=== PATIENT | female | born 1995 | race Caucasian/White ===

== ENCOUNTER → 2016-11-24 | Outpatient (CLI) | payer SELFPAY ==
[2016-11-24 09:50] LABS: BASOPHILS % (AUTO) 0.8 % (0.2-1.0); EOSINOPHILS # (AUTO) 0.1 x10^3/uL (0.0-0.2); EOSINOPHILS % (AUTO) 3.4 % (0.9-2.9); HEMATOCRIT 44.2 % (36.0-47.0); HEMOGLOBIN 15.4 g/dL (12.0-16.0); LYMPHOCYTES # (AUTO) 1.5 X10^3/uL (1.3-2.9); LYMPHOCYTES % (AUTO) 34.1 % (21.0-51.0); MEAN CORPUSCULAR HEMOGLOBIN 30.2 pg (27.0-34.0); MEAN CORPUSCULAR HGB CONC 34.9 g/dL (33.0-35.0); MEAN CORPUSCULAR VOLUME 86.5 fL (80.0-100.0); MONOCYTES # (AUTO) 0.4 x10^3/uL (0.3-0.8); MONOCYTES % (AUTO) 9.1 % (0.0-13.0); NEUTROPHILS # (AUTO) 2.3 x10^3/uL (2.2-4.8); NEUTROPHILS % (AUTO) 52.6 % (42.0-75.0); PLATELET COUNT 204 X10^3/uL (150.0-450.0); RED BLOOD COUNT 5.12 X10^6/uL (3.5-5.4); RETICULOCYTE % 0.65 % (0.8-2.2); WHITE BLOOD COUNT 4.3 X10^3/uL (3.6-10.0)
[2016-11-24 10:13] LABS: ALANINE AMINOTRANSFERASE 20 Units/L (12-78); ALBUMIN 4.7 g/dL (3.4-5.0); ALKALINE PHOSPHATASE 40 Units/L (46-116); ASPARTATE AMINO TRANSFERASE 18 Units/L (15-37); BLOOD UREA NITROGEN 13 mg/dL (7-18); CALCIUM 9.5 mg/dL (8.5-10.1); CARBON DIOXIDE 30.8 mmol/L (21-32); CHLORIDE 104 mmol/L (98-107); CREATININE 0.74 mg/dL (0.55-1.02); FREE T4 (FREE THYROXINE) 1.27 ng/dL (0.76-1.46); GLUCOSE 96 mg/dL (65-99); SODIUM 140 mmol/L (136-145); TOTAL PROTEIN 8.4 g/dL (6.4-8.2); TSH (3RD GENERATION) 1.137 uIU/mL (0.358-3.74); eGFR BLACK RACES > 60 (>60); eGFR NON BLACK RACES > 60 (>60)
[2016-11-24 10:44] LABS: TRANSFERRIN 193 mg/dL (202-364)
== END ==
LOC: LAB 09:23
PROVIDERS: ATTEND Nurse Practitioner Family
DX: R63.4 Abnormal weight loss (principal); D64.89 Other specified anemias; R42 Dizziness and giddiness
CPT/HCPCS: 36415; 80053; 82607; 82728; 82746; 84439; 84443; 84466; 85025; 85045

== ENCOUNTER 2016-12-05 16:08 | Emergency (ER) | payer SELFPAY ==
[2016-12-05 16:12] VITALS: BMI 17.4
[2016-12-05] MEDS ORDERED: NS 1000 ML 1,000 ML ONE ×2 (16:16→17:26)
[2016-12-05] MEDS ORDERED: NS 1000 ML 1,000 ML IV ONE ×2 (16:25→17:39)
[2016-12-05] MEDS ORDERED: ZOFRAN INJ 4 MG VIAL ONE (16:34)
[2016-12-05] MEDS ORDERED: ZOFRAN INJ 4 MG VIAL IVP ONE (16:35)
[2016-12-05 16:36] LABS: BASOPHILS # (AUTO) 0.1 X10^3/uL (0.0-0.1); BASOPHILS % (AUTO) 0.4 % (0.2-1.0); EOSINOPHILS % (AUTO) 0.2 % (0.9-2.9); HEMATOCRIT 42.4 % (36.0-47.0); HEMOGLOBIN 14.4 g/dL (12.0-16.0); LYMPHOCYTES # (AUTO) 0.7 X10^3/uL (1.3-2.9); LYMPHOCYTES % (AUTO) 4.6 % (21.0-51.0); MEAN CORPUSCULAR HEMOGLOBIN 29.7 pg (27.0-34.0); MEAN CORPUSCULAR VOLUME 87.3 fL (80.0-100.0); MEAN PLATELET VOLUME 10.1 fL (7.4-11.0); MONOCYTES # (AUTO) 0.4 x10^3/uL (0.3-0.8); NEUTROPHILS # (AUTO) 13.4 x10^3/uL (2.2-4.8); NEUTROPHILS % (AUTO) 91.8 % (42.0-75.0); PLATELET COUNT 221 X10^3/uL (150.0-450.0); RED BLOOD COUNT 4.86 X10^6/uL (3.5-5.4); RED CELL DISTRIBUTION WIDTH 13.2 % (11.6-16.5); WHITE BLOOD COUNT 14.6 X10^3/uL (3.6-10.0)
[2016-12-05 16:49] LABS: ALANINE AMINOTRANSFERASE 22 Units/L (12-78); ALBUMIN 4.5 g/dL (3.4-5.0); ALKALINE PHOSPHATASE 42 Units/L (46-116); ASPARTATE AMINO TRANSFERASE 18 Units/L (15-37); BLOOD UREA NITROGEN 17 mg/dL (7-18); CARBON DIOXIDE 20.2 mmol/L (21-32); CHLORIDE 100 mmol/L (98-107); COR NA(FOR HYPERGLY) 138 mmol/L (136-145); CREATININE 1.07 mg/dL (0.55-1.02); GLUCOSE 166 mg/dL (65-99); SODIUM 136 mmol/L (136-145); eGFR BLACK RACES > 60 (>60); eGFR NON BLACK RACES > 60 (>60)
[2016-12-05 16:56] LABS: PLATELET MORPHOLOGY COMMENT NORMAL (NORMAL)
[2016-12-05] MEDS ORDERED: TORADOL 30 MG VIAL IVP ONE (17:24)
[2016-12-05] MEDS ORDERED: REGLAN INJ 10 MG VIAL IVP ONE (17:25)
[2016-12-05] MEDS ORDERED: TORADOL 30 MG VIAL ONE (17:26)
[2016-12-05] MEDS ORDERED: REGLAN INJ 10 MG VIAL ONE (17:27)
[2016-12-05] MEDS ORDERED: ATIVAN INJ 2 MG VIAL IVP ONE (17:46)
[2016-12-05] MEDS ORDERED: ATIVAN INJ 2 MG VIAL ONE (17:47)
[2016-12-05] MEDS ORDERED: BENTYL I.M. INJ 10 MG IM ONE ×2 (18:56→18:58)
--- NOTE | 2016-12-05 19:00 | DR.GENAD ---
HPI - PCP Primary Care Physician: kaylin - Complaint/Symptoms Chief Complaint Doctors Comments: Denies fever or diarrhea. Chief Complaint:: patient stated she started vomiting this morning 5 hours ago. - Source History Provided: Patient - Mode of Arrival Mode of Arrival: Ambulatory - Timing Onset of Chief Complaint: 12/05/16 PMH - PMH Past Medical History: No Past Medical History: GERD Past Surgical History: No - Family History History of Family Medical Conditions: No - Social History Does patient currently use any type of tobacco product: Yes Have you used tobacco products in the last 12 months: Yes Type of Tobacco Use: Cigarettes How many years tobacco product used: 1 Does any household member use tobacco: No Alcohol Use: None Do you use any recreational Drugs:: No Lives With: Family Lives Where: Home - infectious screening In the last 2 months have you had wt loss of >10#?: NO Have you had fever, night sweats or hemotysis?: No Have you traveled outside the country in the last 6 months?: No Isolation: Standard ROS - Review of Systems Eyes: No Symptoms Reported ENTM: No Symptoms Reported Respiratoy: No Symptoms Reported Cardiovascular: No Symptoms Reported Gastrointestinal/Abdominal: No Symptoms Reported Genitourinary: No Symptoms Reported Neurological: No Symptoms Reported Musculoskeletal: No Symptoms Reported Integumentary: No Symptoms Reported Hematologic/Lymphatic: No Symptoms Reported Endocrine: No Symptoms Reported Psychiatric: No Symptoms Reported All Other Systems: Reviewed and Negative PE - Vital Signs Vitals: Pulse Rate [Right Brachial] 86 Pulse Rate 73 Respiratory Rate 16 Blood Pressure [Left Arm] 113/55 Blood Pressure 115/75 O2 Sat by Pulse Oximetry 100 - General Limitations: No Limitations General Appearance: Alert, Anxious - Head Head Exam: Normal Inspection, Atraumatic - Eyes Eye exam: Normal Appearance, PERRL, EOMI - ENT ENT Exam: Normal Exam External Ear Exam: Normal External Inspection TM/Canal Exam: Bilateral Normal Nose Exam: Normal Nose Exam Mouth Exam: Normal Inspection Throat Exam: Normal Inspection - Neck Neck Exam: Normal Inspection, Full ROM - Chest Chest Inspection: Normal Inspection, Symmetric Chest Wall Rise - Respiratory Respiratory Exam: Normal Lung Sounds Bilat Respiratory Exam: Bilateral Clear to Auscultation - Cardiovascular Cardiovascular Exam: Regular Rate, Normal Rhythm - Abdominal Exam Abdominal Exam: Soft, Tenderness Abdominal Tenderness: Epigastrium, Suprapubic - Extremities Extremities Exam: Normal Inspection, Full ROM - Back Back Exam: Normal Inspection, Full ROM - Neurologic Neurological Exam: Alert, Oriented X3, CN II-XII Intact - Psychiatric Psychiatric Exam: Normal Affect, Normal Mood - Skin Skin Exam: Warm, Dry, Intact Course - Reevaluation 1st: Improved ROR - Labs Reviewed Laboratory Results Reviewed?: Yes (UDS: cocaine and THC) Result Diagrams: 12/05/16 16:25 12/05/16 16:25 Laboratory: WBC 14.6 X10^3/uL (3.6-10.0) H 12/05/16 16:25 RBC 4.86 X10^6/uL (3.5-5.4) 12/05/16 16:25 Hgb 14.4 g/dL (12.0-16.0) 12/05/16 16:25 Hct 42.4 % (36.0-47.0) 12/05/16 16:25 MCV 87.3 fL (80.0-100.0) 12/05/16 16:25 MCH 29.7 pg (27.0-34.0) 12/05/16 16:25 MCHC 34.0 g/dL (33.0-35.0) 12/05/16 16:25 RDW 13.2 % (11.6-16.5) 12/05/16 16:25 Plt Count 221 X10^3/uL (150.0-450.0) 12/05/16 16:25 Plt Count Comment Adequate (ADEQUATE) 12/05/16 16:25 MPV 10.1 fL (7.4-11.0) 12/05/16 16:25 Neut % 91.8 % (42.0-75.0) H 12/05/16 16:25 Lymph % 4.6 % (21.0-51.0) L 12/05/16 16:25 [place] % 3.0 % (0.0-13.0) 12/05/16 16:25 Eos % 0.2 % (0.9-2.9) L 12/05/16 16:25 Baso % 0.4 % (0.2-1.0) 12/05/16 16:25 Neut # 13.4 x10^3/uL (2.2-4.8) H 12/05/16 16:25 Lymph # 0.7 X10^3/uL (1.3-2.9) L 12/05/16 16:25 [place] # 0.4 x10^3/uL (0.3-0.8) 12/05/16 16:25 Eos # 0.0 x10^3/uL (0.0-0.2) 12/05/16 16:25 Baso # 0.1 X10^3/uL (0.0-0.1) 12/05/16 16:25 Absolute Nucleated RBC 0.0 /100WBC 12/05/16 16:25 Total Counted 100 12/05/16 16:25 Neutrophils % (Manual) 89 % (39-76) H 12/05/16 16:25 Lymphocytes % (Manual) 10 % (13-43) L 12/05/16 16:25 Eosinophils % (Manual) 1 % (0-6) 12/05/16 16:25 Plt Morphology Comment Normal (NORMAL) 12/05/16 16:25 RBC Morphology Normal (NORMAL) 12/05/16 16:25 Sodium 136 mmol/L (136-145) 12/05/16 16:25 Corrected Sodium 138 mmol/L (136-145) 12/05/16 16:25 Potassium 3.9 mmol/L (3.5-5.1) 12/05/16 16:25 Chloride 100 mmol/L (98-107) 12/05/16 16:25 Carbon Dioxide 20.2 mmol/L (21-32) L 12/05/16 16:25 BUN 17 mg/dL (7-18) 12/05/16 16:25 Creatinine 1.07 mg/dL (0.55-1.02) H 12/05/16 16:25 Est GFR (MDRD) Af Amer > 60 (>60) 12/05/16 16:25 Est GFR (MDRD) Non-Af > 60 (>60) 12/05/16 16:25 Glucose 166 mg/dL (65-99) H 12/05/16 16:25 Calcium 10.0 mg/dL (8.5-10.1) 12/05/16 16:25 Corrected Calcium TNP 12/05/16 16:25 Total Bilirubin 1.30 mg/dL (0.2-1.0) H 12/05/16 16:25 AST 18 Units/L (15-37) 12/05/16 16:25 ALT 22 Units/L (12-78) 12/05/16 16:25 Alkaline Phosphatase 42 Units/L (46-116) L 12/05/16 16:25 Total Protein 8.0 g/dL (6.4-8.2) 12/05/16 16:25 Albumin 4.5 g/dL (3.4-5.0) 12/05/16 16:25 Globulin 3.5 g/dL (2.5-4.5) 12/05/16 16:25 Albumin/Globulin Ratio 1.3 Ratio (1.1-2.1) 12/05/16 16:25 Specimen Type Clean catch urine 12/05/16 18:43 Urine Color Yellow (YELLOW) 12/05/16 18:43 Urine Appearance Clear (CLEAR) 12/05/16 18:43 Urine pH 8.0 (5.0 - 8.0) 12/05/16 18:43 Ur Specific [place] 1.015 (1.000-1.030) 12/05/16 18:43 Urine Protein 1+ (NEGATIVE) 12/05/16 18:43 Urine Glucose (UA) Negative (NEGATIVE) 12/05/16 18:43 Urine Ketones 4+ (NEGATIVE) 12/05/16 18:43 Urine Occult Blood Negative (NEGATIVE) 12/05/16 18:43 Urine Nitrite Negative (NEGATIVE) 12/05/16 18:43 Urine Bilirubin Negative (NEGATIVE) 12/05/16 18:43 Urine Urobilinogen Normal (NORMAL) 12/05/16 18:43 Ur Leukocyte Esterase Negative (NEGATIVE) 12/05/16 18:43 Urine RBC Rare /HPF (NEGATIVE) 12/05/16 18:43 Urine WBC 0 - 3 /HPF (NEGATIVE) 12/05/16 18:43 Ur Squamous Epith Cells Few /HPF (NEGATIVE) 12/05/16 18:43 Ur Renal Epithelial Cell Rare /HPF (NEGATIVE) 12/05/16 18:43 Amorphous Sediment 1+ /HPF (NEGATIVE) 12/05/16 18:43 Urine Bacteria Trace /HPF (NEGATIVE) 12/05/16 18:43 Ur Culture Indicated? No/not indicated 12/05/16 18:43 Urine Opiates Screen Negative (NEG=<300) 12/05/16 18:43 Urine Methadone Screen Negative (NEG=<300) 12/05/16 18:43 Ur Barbiturates Screen Negative (NEG=<200) 12/05/16 18:43 Ur Phencyclidine Scrn Negative (NEG=<25) 12/05/16 18:43 Ur Amphetamines Screen Negative (NEG=<1000) 12/05/16 18:43 U Benzodiazepines Scrn Negative (NEG=<200) 12/05/16 18:43 Urine Cocaine Screen Positive (NEG=<300) A 12/05/16 18:43 U Marijuana (THC) Screen Positive (NEG=<50) A 12/05/16 18:43 H. pylori IgG Antibody Negative (NEGATIVE) 12/05/16 16:25 - Diagnosis Discharge Problem: Illicit drug use - Discharge Plan Condition: Stable - Follow ups/Referrals Follow ups/Referrals: KATHERINE ENCARNACION [Primary Care Provider] - 3 days - Instructions
[2016-12-05 19:03] LABS: BILIRUBIN,URINE NEGATIVE (NEGATIVE); BLOOD/HEMOGLOBIN,URINE NEGATIVE (NEGATIVE); GLUCOSE, URINE NEGATIVE (NEGATIVE); KETONES,URINE 4+ (NEGATIVE); LEUKOCYTE ESTERASE ,URINE NEGATIVE (NEGATIVE); NITRITES,URINE NEGATIVE (NEGATIVE); PROTEIN,URINE 1+ (NEGATIVE); UROBILINOGEN,URINE NORMAL (NORMAL)
[2016-12-05 19:16] LABS: APPEARANCE,URINE CLEAR (CLEAR); COLOR,URINE YELLOW (YELLOW)
[2016-12-05 19:17] LABS: AMORPHOUS SEDIMENT,UR 1+ /HPF (NEGATIVE); BACTERIA,URINE TRACE /HPF (NEGATIVE); RBC,URINE RARE /HPF (NEGATIVE); RENAL EPITHELIAL CELLS,URINE RARE /HPF (NEGATIVE); SQUAMOUS EPITHELIAL CELL,UR FEW /HPF (NEGATIVE)
[2016-12-05 21:54] VITALS: BP 113/55
== END 2016-12-05 22:09 | disposition home or self-care (01) ==
LOC: ER 16:17
DX: F12.90 Cannabis use, unspecified, uncomplicated (principal)
CPT/HCPCS: 36415; 80053; 80307; 81001; 85025; 86677; 96365; 96367; 96372; 96374; 96375; 99283; 99284; A4222; G0434; J0500; J1885; J2060; J2405; J2765

== ENCOUNTER 2016-12-06 07:32 | Emergency (ER) | payer SELFPAY ==
[2016-12-06 07:41] VITALS: BP 119/69; BMI 17.4
[2016-12-06] MEDS ORDERED: NS 1000 ML 1,000 ML IV ONE (07:54)
[2016-12-06] MEDS ORDERED: PHENERGAN INJ 25 MG IVP ONE (07:54)
[2016-12-06] MEDS ORDERED: NS 1000 ML 1,000 ML ONE (07:56)
[2016-12-06] MEDS ORDERED: PHENERGAN INJ 25 MG ONE (07:57)
[2016-12-06 08:12] LABS: BILIRUBIN,URINE NEGATIVE (NEGATIVE); BLOOD/HEMOGLOBIN,URINE 1+ (NEGATIVE); GLUCOSE, URINE 2+ (NEGATIVE); KETONES,URINE 4+ (NEGATIVE); LEUKOCYTE ESTERASE ,URINE NEGATIVE (NEGATIVE); NITRITES,URINE NEGATIVE (NEGATIVE); PROTEIN,URINE 2+ (NEGATIVE); UROBILINOGEN,URINE NORMAL (NORMAL)
[2016-12-06 08:12] LABS: BASOPHILS % (AUTO) 0.2 % (0.2-1.0); HEMATOCRIT 38.6 % (36.0-47.0); HEMOGLOBIN 13.5 g/dL (12.0-16.0); LYMPHOCYTES # (AUTO) 0.8 X10^3/uL (1.3-2.9); MEAN CORPUSCULAR HGB CONC 34.9 g/dL (33.0-35.0); MEAN PLATELET VOLUME 9.6 fL (7.4-11.0); MONOCYTES # (AUTO) 0.5 x10^3/uL (0.3-0.8); MONOCYTES % (AUTO) 4.9 % (0.0-13.0); NEUTROPHILS % (AUTO) 85.9 % (42.0-75.0); PLATELET COUNT 220 X10^3/uL (150.0-450.0); RED BLOOD COUNT 4.48 X10^6/uL (3.5-5.4); RED CELL DISTRIBUTION WIDTH 13.2 % (11.6-16.5); WHITE BLOOD COUNT 9.4 X10^3/uL (3.6-10.0)
[2016-12-06 08:28] LABS: ALANINE AMINOTRANSFERASE 23 Units/L (12-78); ALBUMIN 4.1 g/dL (3.4-5.0); ALKALINE PHOSPHATASE 33 Units/L (46-116); ASPARTATE AMINO TRANSFERASE 35 Units/L (15-37); BLOOD UREA NITROGEN 13 mg/dL (7-18); CALCIUM 9.4 mg/dL (8.5-10.1); CARBON DIOXIDE 19.6 mmol/L (21-32); CHLORIDE 104 mmol/L (98-107); COR NA(FOR HYPERGLY) 138 mmol/L (136-145); CREATININE 0.71 mg/dL (0.55-1.02); GLUCOSE 139 mg/dL (65-99); SODIUM 137 mmol/L (136-145); TOTAL PROTEIN 7.4 g/dL (6.4-8.2); eGFR BLACK RACES > 60 (>60); eGFR NON BLACK RACES > 60 (>60)
--- NOTE | 2016-12-06 08:54 | DR.NAUSEAF ---
HPI - Time Seen Time seen: 08:45 - Primary Care Physician Primary Care Physician: Dr. Orlando - HPI Comment HPI Comment: PATIENT SEE IN ED FOR SAME BUT BACK DUE TO PERSISTENT N/V. NOT HOLDING DOWN FLUID. PAIN MAINLY UPPER ABDOMEN AREA. NO DIARRHEA. - Complaints Chief Complaint Doctors Comments: ABDOMINAL PAIN, NAUSEA, VOMITING TIMES ONE DAY. Chief Complaint:: " Nausea and Vomiting" Self Treatment fo Chief Complaint: Tums, pt was seen in the er last pm - Reviewed Nurses Notes Reviewed: Yes - Source History Provided: Patient - Mode of Arrival Mode of Arrival: Ambulatory - Timing Onset of Chief Complaint: 12/05/16 - Context Onset: Spontaneous Recent: None - Quality Quality: Bilious - Associated Signs and Symptoms Abdominal Pain Quality: Cramping Abdominal Pain Location: Diffuse Symptoms: Abdominal Pain PMH - PMH Past Medical History: Yes Past Medical History: GERD Past Surgical History: No - Family History History of Family Medical Conditions: Yes Family Medical History: Diabetes Mellitus, PA, Hypertension - Social History Does patient currently use any type of tobacco product: Yes Have you used tobacco products in the last 12 months: Yes Type of Tobacco Use: Cigarettes How many years tobacco product used: 1 Does any household member use tobacco: Yes Alcohol Use: None Do you use any recreational Drugs:: Yes Lives With: Friend Lives Where: Home - infectious screening In the last 2 months have you had wt loss of >10#?: NO Have you had fever, night sweats or hemotysis?: No Have you traveled outside the country in the last 6 months?: No ROS - Review of Systems Constitutional: Weakness, Fatigue, Loss of Appetite. negative: Chills, Fever Eyes: No Symptoms Reported. negative: Eye Pain, Discharge ENTM: No Symptoms Reported. negative: Ear Pain, Nose Discharge, Nose Congestion , Throat Pain Respiratoy: No Symptoms Reported. negative: Productive Cough, Non-Productive Cough, Short of Breath, Wheezing, Hemoptysis Cardiovascular: No Symptoms Reported. negative: Chest Pain, Edema Gastrointestinal/Abdominal: Abdominal Pain, Nausea, Vomiting Genitourinary: No Symptoms Reported. negative: Dysuria, Frequency, Hematuria Neurological: Headache, Weakness, Dizziness Musculoskeletal: Muscle Pain Integumentary: No Symptoms Reported Hematologic/Lymphatic: No Symptoms Reported Endocrine: No Symptoms Reported All Other Systems: Reviewed and Negative PE - Vital Signs Vitals: Temperature 97.8 F Pulse Rate 96 Respiratory Rate 20 Blood Pressure [Left Arm] 113/55 Blood Pressure 119/69 O2 Sat by Pulse Oximetry 98 - General Limitations: No Limitations General Appearance: Alert - Head Head Exam: Normal Inspection - Eyes Eye exam: Normal Appearance - ENT ENT Exam: Normal External Ear Exam - Neck Neck Exam: Normal Inspection - Chest Chest Inspection: Symmetric Chest Wall Rise - Respiratory Respiratory Exam: Normal Lung Sounds Bilat Respiratory Exam: Bilateral Clear to Auscultation - Cardiovascular Cardiovascular Exam: Regular Rate, Normal Rhythm, Normal Heart Sounds - Abdominal Exam Abdominal Exam: Normal Bowel Sounds, Soft. negative: Tenderness - Rectal Rectal Exam: Deferred - External Exam: Female: Deferred : Bimanual Exam (female): Deferred - Extremities Extremities Exam: Normal Inspection - Back Back Exam: Normal Inspection - Neurologic Neurological Exam: Alert, Oriented X3 - Psychiatric Psychiatric Exam: Anxious - Skin Skin Exam: Dry MDM - Additional Information Obtained Additional Information Obtained From: Family - Differential Diagnosis Differential Diagnosis Comment: ABDOMINAL PAIN, GASTRITIS, BOWEL OBSTRUCTION. Course - Treatment Treatment: SEE ORDERS. - Education/Counseling Education/Counseling: Patient, Family, Education Educated On: Treatment, Diagnosis, Needs for Follow Up ROR - Labs Reviewed Laboratory Results Reviewed?: Yes Result Diagrams: 12/06/16 08:03 12/06/16 08:03 Laboratory: WBC 9.4 X10^3/uL (3.6-10.0) 12/06/16 08:03 RBC 4.48 X10^6/uL (3.5-5.4) 12/06/16 08:03 Hgb 13.5 g/dL (12.0-16.0) 12/06/16 08:03 Hct 38.6 % (36.0-47.0) 12/06/16 08:03 MCV 86.0 fL (80.0-100.0) 12/06/16 08:03 MCH 30.0 pg (27.0-34.0) 12/06/16 08:03 MCHC 34.9 g/dL (33.0-35.0) 12/06/16 08:03 RDW 13.2 % (11.6-16.5) 12/06/16 08:03 Plt Count 220 X10^3/uL (150.0-450.0) 12/06/16 08:03 MPV 9.6 fL (7.4-11.0) 12/06/16 08:03 Neut % 85.9 % (42.0-75.0) H 12/06/16 08:03 Lymph % 9.0 % (21.0-51.0) L 12/06/16 08:03 [place] % 4.9 % (0.0-13.0) 12/06/16 08:03 Eos % 0.0 % (0.9-2.9) L 12/06/16 08:03 Baso % 0.2 % (0.2-1.0) 12/06/16 08:03 Neut # 8.0 x10^3/uL (2.2-4.8) H 12/06/16 08:03 Lymph # 0.8 X10^3/uL (1.3-2.9) L 12/06/16 08:03 Burt # 0.5 x10^3/uL (0.3-0.8) 12/06/16 08:03 Eos # 0.0 x10^3/uL (0.0-0.2) 12/06/16 08:03 Baso # 0.0 X10^3/uL (0.0-0.1) 12/06/16 08:03 Absolute Nucleated RBC 0.0 /100WBC 12/06/16 08:03 Sodium 137 mmol/L (136-145) 12/06/16 08:03 Corrected Sodium 138 mmol/L (136-145) 12/06/16 08:03 Potassium 3.2 mmol/L (3.5-5.1) L 12/06/16 08:03 Chloride 104 mmol/L (98-107) 12/06/16 08:03 Carbon Dioxide 19.6 mmol/L (21-32) L 12/06/16 08:03 BUN 13 mg/dL (7-18) 12/06/16 08:03 Creatinine 0.71 mg/dL (0.55-1.02) 12/06/16 08:03 Est GFR (MDRD) Af Amer > 60 (>60) 12/06/16 08:03 Est GFR (MDRD) Non-Af > 60 (>60) 12/06/16 08:03 Glucose 139 mg/dL (65-99) H 12/06/16 08:03 Calcium 9.4 mg/dL (8.5-10.1) 12/06/16 08:03 Corrected Calcium TNP 12/06/16 08:03 Total Bilirubin 1.10 mg/dL (0.2-1.0) H 12/06/16 08:03 AST 35 Units/L (15-37) 12/06/16 08:03 ALT 23 Units/L (12-78) 12/06/16 08:03 Alkaline Phosphatase 33 Units/L (46-116) L 12/06/16 08:03 Total Protein 7.4 g/dL (6.4-8.2) 12/06/16 08:03 Albumin 4.1 g/dL (3.4-5.0) 12/06/16 08:03 Globulin 3.3 g/dL (2.5-4.5) 12/06/16 08:03 Albumin/Globulin Ratio 1.2 Ratio (1.1-2.1) 12/06/16 08:03 HCG, Qual Negative <10 mIU/mL 12/06/16 08:03 Specimen Type Clean catch urine 12/06/16 07:56 Urine Color Yellow (YELLOW) 12/06/16 07:56 Urine Appearance Clear (CLEAR) 12/06/16 07:56 Urine pH 6.0 (5.0 - 8.0) 12/06/16 07:56 Ur Specific [place] 1.025 (1.000-1.030) 12/06/16 07:56 Urine Protein 2+ (NEGATIVE) 12/06/16 07:56 Urine Glucose (UA) 2+ (NEGATIVE) 12/06/16 07:56 Urine Ketones 4+ (NEGATIVE) 12/06/16 07:56 Urine Occult Blood 1+ (NEGATIVE) 12/06/16 07:56 Urine Nitrite Negative (NEGATIVE) 12/06/16 07:56 Urine Bilirubin Negative (NEGATIVE) 12/06/16 07:56 Urine Urobilinogen Normal (NORMAL) 12/06/16 07:56 Ur Leukocyte Esterase Negative (NEGATIVE) 12/06/16 07:56 Urine RBC 0-5 /HPF (NEGATIVE) 12/06/16 07:56 Urine WBC 0-5 /HPF (NEGATIVE) 12/06/16 07:56 Ur Squamous Epith Cells Few /HPF (NEGATIVE) 12/06/16 07:56 Urine Bacteria Negative /HPF (NEGATIVE) 12/06/16 07:56 Urine Mucus Many /HPF (NEGATIVE) 12/06/16 07:56 Ur Culture Indicated? No/not indicated 12/06/16 07:56 Urine Opiates Screen Negative (NEG=<300) 12/06/16 07:56 Urine Methadone Screen Negative (NEG=<300) 12/06/16 07:56 Ur Barbiturates Screen Negative (NEG=<200) 12/06/16 07:56 Ur Phencyclidine Scrn Negative (NEG=<25) 12/06/16 07:56 Ur Amphetamines Screen Negative (NEG=<1000) 12/06/16 07:56 U Benzodiazepines Scrn Negative (NEG=<200) 12/06/16 07:56 Urine Cocaine Screen Positive (NEG=<300) A 12/06/16 07:56 U Marijuana (THC) Screen Positive (NEG=<50) A 12/06/16 07:56 H. pylori IgG Antibody Negative (NEGATIVE) 12/06/16 08:03 - XRAY XRAY Findings: REPORT DISCUSS WITH PATIENT. - Diagnosis Discharge Problem: Substance use disorder Abdominal pain Qualifiers: Abdominal location: upper abdomen, unspecified Qualified Code(s): R10.10 - Upper abdominal pain, unspecified Gastritis Qualifiers: Gastritis type: other gastritis Chronicity: acute Gastritis bleeding: without bleeding Qualified Code(s): K29.00 - Acute gastritis without bleeding - Discharge Plan Disposition: 01 HOME, SELF-CARE Condition: Stable Prescriptions: Ondansetron HCl [Zofran Tab 4 mg] 4 mg PO Q8H PRN #12 tab PRN Reason: Nausea/Vomiting Ranitidine HCl [ZANTAC TAB 150 MG *] 150 mg PO BID #60 tab - Follow ups/Referrals Follow ups/Referrals: TYRONE ORLANDO [Primary Care Provider] - 3 days - Instructions Instructions: Stimulant Use Disorder-Cocaine, Nausea and Vomiting, Adult, Easy- to-Read, Abdominal Pain, Adult, [id number] Additional Instructions: RETURN TO ED IF WORSE.
[2016-12-06 09:15] LABS: APPEARANCE,URINE CLEAR (CLEAR); BACTERIA,URINE NEGATIVE /HPF (NEGATIVE); COLOR,URINE YELLOW (YELLOW); MUCUS,URINE MANY /HPF (NEGATIVE); RBC,URINE 0-5 /HPF (NEGATIVE); SQUAMOUS EPITHELIAL CELL,UR FEW /HPF (NEGATIVE)
[2016-12-06] MEDS ORDERED: PEPCID 20 MG IV PREMIX* 20 MG/50 ML BAG IV ONE ×2 (09:15→09:18)
[2016-12-06] MEDS ORDERED: K-DUR TAB 20 MEQ PO ONE (09:18)
[2016-12-06] MEDS ORDERED: POTASSIUM CHLORIDE LIQ 20 MEQ UDC PO ONE (09:18)
[2016-12-06 09:53] LABS: SERUM PREGNANCY TEST, QUAL NEGATIVE <10 mIU/mL
[2016-12-06] MEDS ORDERED: NS 500 ML IV 500 ML IV ONE (09:59)
--- NOTE | 2016-12-06 10:09 | RAD ---
HISTORY: Abdominal pain Study: Acute abdominal series Comparison: None Findings: The trachea is midline. The cardiac silhouette is unremarkable. The lungs are clear without focal i nfiltrate or effusion. The bony thorax is unremarkable. Flat plate and upright evaluation of the abdomen demonstrates a normal bowel gas pattern. No patholo gical soft tissue mass or calcification can be observed. The bony structures are grossly intact. IMPRESSION: 1. No acute cardiopulmonary disease. 2. No evidence for acute abdominal pathology identified. Reported By:
[2016-12-06] MEDS ORDERED: LEVSIN/MAALOX/LIDOC VISC PO ONE (10:25)
[2016-12-06] MEDS ORDERED: LEVSIN/MAALOX/LIDOC VISC ONE (10:25)
== END 2016-12-06 10:31 | disposition home or self-care (01) ==
LOC: ER 07:43
DX: F19.10 Other psychoactive substance abuse, uncomplicated (principal); K29.00 Acute gastritis without bleeding; R10.84 Generalized abdominal pain
CPT/HCPCS: 36415; 74022; 80053; 80307; 81001; 84703; 85025; 86677; 96365; 96374; 96375; 99283; A4222; S0028; G0434; J2550

== ENCOUNTER 2017-05-27 13:59 | Emergency (ER) | payer SELFPAY ==
[2017-05-27 14:14] VITALS: BP 118/69; BMI 17.7
--- NOTE | 2017-05-27 14:50 | DR.NAUSEAF ---
HPI - Time Seen Time seen: 14:45 - Primary Care Physician Primary Care Physician: KATHERINE - Complaints Chief Complaint Doctors Comments: Patient presents with complaint of n,v, diarrhea today. Admits to vomiting x 10-12 and diarrhea x5-6. She denies fever or congestion. PMx of reflux. Chief Complaint:: PT C/O WAKING UP AT 0800 THIS AM NOT BEING ABLE TO KEEP ANYTHING DOWN .. Self Treatment fo Chief Complaint: 200 ML OF YELLOW VOMIT NOTE, - Source History Provided: Patient - Mode of Arrival Mode of Arrival: Ambulatory - Timing Onset of Chief Complaint: 05/27/17 PMH - PMH Past Medical History: No Past Medical History: GERD Past Surgical History: No - Family History History of Family Medical Conditions: Yes Family Medical History: Diabetes Mellitus Family Medical History Comment: COPD - Social History Does patient currently use any type of tobacco product: Yes Have you used tobacco products in the last 12 months: Yes Type of Tobacco Use: Cigarettes How many years tobacco product used: 2 Does any household member use tobacco: No Alcohol Use: None Do you use any recreational Drugs:: No Lives With: Family Lives Where: Home - infectious screening In the last 2 months have you had wt loss of >10#?: NO Have you had fever, night sweats or hemotysis?: No Have you traveled outside the country in the last 6 months?: No Isolation: Standard ROS - Review of Systems Eyes: No Symptoms Reported ENTM: No Symptoms Reported Respiratoy: No Symptoms Reported Cardiovascular: No Symptoms Reported Gastrointestinal/Abdominal: No Symptoms Reported Genitourinary: No Symptoms Reported Neurological: No Symptoms Reported Musculoskeletal: No Symptoms Reported Integumentary: No Symptoms Reported Hematologic/Lymphatic: No Symptoms Reported Endocrine: No Symptoms Reported Psychiatric: No Symptoms Reported All Other Systems: Reviewed and Negative PE - Vital Signs Vitals: Temperature 98.9 F Pulse Rate [Left Brachial] 92 Pulse Rate 96 Respiratory Rate 18 Blood Pressure [Left Arm] 113/55 Blood Pressure 118/69 O2 Sat by Pulse Oximetry 100 - General Limitations: No Limitations General Appearance: Alert, In No Apparent Distress - Head Head Exam: Normal Inspection, Atraumatic - Eyes Eye exam: Normal Appearance, PERRL, EOMI - ENT ENT Exam: Normal Exam - Neck Neck Exam: Normal Inspection, Full ROM - Respiratory Respiratory Exam: Normal Lung Sounds Bilat - Cardiovascular Cardiovascular Exam: Regular Rate, Normal Rhythm - Abdominal Exam Abdominal Exam: Normal Inspection Abdominal Tenderness: negative: RUQ, RLQ, LUQ, LLQ, Epigastrium, Suprapubic, Diffuse, Mild, Moderate, Severe, Other - Rectal Rectal Exam: Deferred - External Exam: Female: Deferred : Speculum Exam (Female): Deferred : Bimanual Exam (female): Deferred - Extremities Extremities Exam: Normal Inspection, Full ROM - Back Back Exam: Normal Inspection, (R) CVA Tenderness - Neurologic Neurological Exam: Alert, Oriented X3, CN II-XII Intact - Psychiatric Psychiatric Exam: Normal Affect - Skin Skin Exam: Warm, Dry, Intact Course - Treatment Treatment: UDS positive for THC, Benzodiazpene - Reevaluation 1st: Improved ROR - Labs Reviewed Result Diagrams: 05/27/17 15:00 05/27/17 15:00 Laboratory: WBC 12.6 X10^3/uL (3.6-10.0) H 05/27/17 15:00 RBC 4.69 X10^6/uL (3.5-5.4) 05/27/17 15:00 Hgb 14.5 g/dL (12.0-16.0) 05/27/17 15:00 Hct 41.2 % (36.0-47.0) 05/27/17 15:00 MCV 87.9 fL (80.0-100.0) 05/27/17 15:00 MCH 31.0 pg (27.0-34.0) 05/27/17 15:00 MCHC 35.2 g/dL (33.0-35.0) H 05/27/17 15:00 RDW 13.0 % (11.6-16.5) 05/27/17 15:00 Plt Count 248 X10^3/uL (150.0-450.0) 05/27/17 15:00 Plt Count Comment Adequate (ADEQUATE) 05/27/17 15:00 MPV 9.7 fL (7.4-11.0) 05/27/17 15:00 Neut % 90.9 % (42.0-75.0) H 05/27/17 15:00 Lymph % 5.3 % (21.0-51.0) L 05/27/17 15:00 [place] % 3.7 % (0.0-13.0) 05/27/17 15:00 Eos % 0.0 % (0.9-2.9) L 05/27/17 15:00 Baso % 0.1 % (0.2-1.0) L 05/27/17 15:00 Neut # 11.4 x10^3/uL (2.2-4.8) H 05/27/17 15:00 Lymph # 0.7 X10^3/uL (1.3-2.9) L 05/27/17 15:00 [place] # 0.5 x10^3/uL (0.3-0.8) 05/27/17 15:00 Eos # 0.0 x10^3/uL (0.0-0.2) 05/27/17 15:00 Baso # 0.0 X10^3/uL (0.0-0.1) 05/27/17 15:00 Absolute Nucleated RBC 0.0 /100WBC 05/27/17 15:00 Total Counted 100 05/27/17 15:00 Neutrophils % (Manual) 90 % (39-76) H 05/27/17 15:00 Band Neutrophils % 2 % (0-10) 05/27/17 15:00 Lymphocytes % (Manual) 4 % (13-43) L 05/27/17 15:00 Monocytes % (Manual) 3 % (4-9) L 05/27/17 15:00 Plt Morphology Comment Normal (NORMAL) 05/27/17 15:00 RBC Morphology Normal (NORMAL) 05/27/17 15:00 Sodium 137 mmol/L (136-145) 05/27/17 15:00 Corrected Sodium 139 mmol/L (136-145) 05/27/17 15:00 Potassium 3.4 mmol/L (3.5-5.1) L 05/27/17 15:00 Chloride 101 mmol/L (98-107) 05/27/17 15:00 Carbon Dioxide 20.2 mmol/L (21-32) L 05/27/17 15:00 BUN 15 mg/dL (7-18) 05/27/17 15:00 Creatinine 0.81 mg/dL (0.55-1.02) 05/27/17 15:00 Est GFR (MDRD) Af Amer > 60 (>60) 05/27/17 15:00 Est GFR (MDRD) Non-Af > 60 (>60) 05/27/17 15:00 Glucose 166 mg/dL (65-99) H 05/27/17 15:00 Calcium 10.0 mg/dL (8.5-10.1) 05/27/17 15:00 Specimen Type Random urine 05/27/17 16:21 Urine Color Yellow (YELLOW) 05/27/17 16:21 Urine Appearance Slightly hazy (CLEAR) 05/27/17 16:21 Urine pH 8.0 (5.0 - 8.0) 05/27/17 16:21 Ur Specific [place] 1.010 (1.000-1.030) 05/27/17 16:21 Urine Protein 3+ (NEGATIVE) 05/27/17 16:21 Urine Glucose (UA) Negative (NEGATIVE) 05/27/17 16:21 Urine Ketones 4+ (NEGATIVE) 05/27/17 16:21 Urine Occult Blood 5+ (NEGATIVE) 05/27/17 16:21 Urine Nitrite Negative (NEGATIVE) 05/27/17 16:21 Urine Bilirubin Negative (NEGATIVE) 05/27/17 16:21 Urine Urobilinogen Normal (NORMAL) 05/27/17 16:21 Ur Leukocyte Esterase 1+ (NEGATIVE) 05/27/17 16:21 Urine RBC 02 - 05 /HPF (NEGATIVE) 05/27/17 16:21 Urine WBC 02 - 05 /HPF (NEGATIVE) 05/27/17 16:21 Ur Squamous Epith Cells Many /HPF (NEGATIVE) 05/27/17 16: Amorphous Sediment 1+ /HPF (NEGATIVE) 05/27/17 16:21 Urine Bacteria 1+ /HPF (NEGATIVE) 05/27/17 16:21 Hyaline Casts Rare /LPF (NEGATIVE) 05/27/17 16:21 Urine Mucus Moderate /HPF (NEGATIVE) 05/27/17 16:21 Ur Culture Indicated? No/not indicated 05/27/17 16: Urine Opiates Screen Negative (NEG=<300) 05/27/17 16:21 Urine Methadone Screen Negative (NEG=<300) 05/27/17 16:21 Ur Barbiturates Screen Negative (NEG=<200) 05/27/17 16:21 Ur Phencyclidine Scrn Negative (NEG=<25) 05/27/17 16:21 Ur Amphetamines Screen Negative (NEG=<1000) 18 16:21 U Benzodiazepines Scrn Positive (NEG=<200) A 18 16:21 Urine Cocaine Screen Negative (NEG=<300) 18 16:21 U Marijuana (THC) Screen Positive (NEG=<50) A 05/27/17 16:21 - Diagnosis Discharge Problem: Nausea and vomiting in adult patient, Tetrahydrocannabinol (THC) use disorder, mild, abuse, Benzodiazepine abuse - Discharge Plan Condition: Stable - Follow ups/Referrals Follow ups/Referrals: KATHERINE ENCARNACION [Primary Care Provider] - 3 days - Instructions
[2017-05-27] MEDS ORDERED: PHENERGAN INJ 25 MG IV ONE (14:52)
[2017-05-27] MEDS ORDERED: NS 1000 ML 1,000 ML IV ONE ×2 (14:52→17:29)
[2017-05-27] MEDS ORDERED: TORADOL 30 MG VIAL IVP ONE (14:55)
[2017-05-27] MEDS ORDERED: PHENERGAN INJ 25 MG ONE (14:59)
[2017-05-27] MEDS ORDERED: TORADOL 30 MG VIAL ONE (14:59)
[2017-05-27] MEDS ORDERED: NS 1000 ML 1,000 ML ONE ×2 (14:59→17:39)
[2017-05-27 15:06] LABS: BASOPHILS % (AUTO) 0.1 % (0.2-1.0); HEMATOCRIT 41.2 % (36.0-47.0); HEMOGLOBIN 14.5 g/dL (12.0-16.0); LYMPHOCYTES # (AUTO) 0.7 X10^3/uL (1.3-2.9); LYMPHOCYTES % (AUTO) 5.3 % (21.0-51.0); MEAN CORPUSCULAR HGB CONC 35.2 g/dL (33.0-35.0); MEAN CORPUSCULAR VOLUME 87.9 fL (80.0-100.0); MEAN PLATELET VOLUME 9.7 fL (7.4-11.0); MONOCYTES # (AUTO) 0.5 x10^3/uL (0.3-0.8); MONOCYTES % (AUTO) 3.7 % (0.0-13.0); NEUTROPHILS # (AUTO) 11.4 x10^3/uL (2.2-4.8); NEUTROPHILS % (AUTO) 90.9 % (42.0-75.0); PLATELET COUNT 248 X10^3/uL (150.0-450.0); RED BLOOD COUNT 4.69 X10^6/uL (3.5-5.4); WHITE BLOOD COUNT 12.6 X10^3/uL (3.6-10.0)
[2017-05-27 15:13] LABS: BLOOD UREA NITROGEN 15 mg/dL (7-18); CARBON DIOXIDE 20.2 mmol/L (21-32); CHLORIDE 101 mmol/L (98-107); COR NA(FOR HYPERGLY) 139 mmol/L (136-145); CREATININE 0.81 mg/dL (0.55-1.02); SODIUM 137 mmol/L (136-145); eGFR BLACK RACES > 60 (>60); eGFR NON BLACK RACES > 60 (>60)
[2017-05-27 15:46] LABS: BAND NEUTROPHILS % 2 % (0-10); PLATELET MORPHOLOGY COMMENT NORMAL (NORMAL)
[2017-05-27 16:44] LABS: BILIRUBIN,URINE NEGATIVE (NEGATIVE); BLOOD/HEMOGLOBIN,URINE 5+ (NEGATIVE); GLUCOSE, URINE NEGATIVE (NEGATIVE); KETONES,URINE 4+ (NEGATIVE); LEUKOCYTE ESTERASE ,URINE 1+ (NEGATIVE); NITRITES,URINE NEGATIVE (NEGATIVE); PROTEIN,URINE 3+ (NEGATIVE); UROBILINOGEN,URINE NORMAL (NORMAL)
[2017-05-27 16:55] LABS: APPEARANCE,URINE SLIGHTLY HAZY (CLEAR); BACTERIA,URINE 1+ /HPF (NEGATIVE); COLOR,URINE YELLOW (YELLOW); SQUAMOUS EPITHELIAL CELL,UR MANY /HPF (NEGATIVE)
[2017-05-27 16:56] LABS: AMORPHOUS SEDIMENT,UR 1+ /HPF (NEGATIVE); HYALINE CASTS, URINE RARE /LPF (NEGATIVE); MUCUS,URINE MODERATE /HPF (NEGATIVE)
[2017-05-27] MEDS ORDERED: REGLAN INJ 10 MG VIAL ONE (17:08)
[2017-05-27] MEDS ORDERED: REGLAN INJ 10 MG VIAL IVP ONE (17:14)
--- NOTE | 2017-05-27 18:39 | RAD ---
HISTORY: Vomiting Study: KUB Comparison: None Findings: Single supine view demonstrates a normal nonobstructive bowel-gas pattern. No abnormal calcification or soft tissue masses are identified. The skeletal structures are intact. IMPRESSION: 1. Negative exam. Reported By:
== END 2017-05-27 18:41 | disposition home or self-care (01) ==
LOC: ER 14:17
DX: F12.10 Cannabis abuse, uncomplicated (principal); F13.20 Sedative, hypnotic or anxiolytic dependence, uncomplicated; R11.2 Nausea with vomiting, unspecified; K52.89 Other specified noninfective gastroenteritis and colitis
CPT/HCPCS: 36415; 74018; 80048; 80307; 81001; 85025; 96365; 96367; 96374; 96375; 99283; A4222; G0434; J1885; J2550; J2765